=== PATIENT | male | born 1995 | race Caucasian/White ===

== ENCOUNTER 2019-12-03 13:17 | Emergency (ER) | payer SELFPAY ==
[2019-12-03] MEDS ORDERED: Proparacaine 0.5% Opth 15 ML BOT ONE (13:45)
[2019-12-03] MEDS ORDERED: Fluorescein Opthalmic Strip ONE (13:45)
== END 2019-12-03 14:39 | disposition home or self-care (01) ==
LOC: NAV ERS 13:17
DX: S05.02XA Injury of conjunctiva and corneal abrasion without foreign body, left eye, initial encounter (principal); F41.9 Anxiety disorder, unspecified; F32.9 Major depressive disorder, single episode, unspecified; F90.9 Attention-deficit hyperactivity disorder, unspecified type; F17.210 Nicotine dependence, cigarettes, uncomplicated
CPT/HCPCS: 99283